=== PATIENT | male | born 1975 | race Caucasian/White ===

== ENCOUNTER 2018-02-12 13:36 | Emergency (ER) | payer SELFPAY ==
--- NOTE | 2018-02-12 14:32 | ED PDOC ---
HPI: Fever Fever Onset Was: 02/07/18 The Fever Was Measured: Tactile Symptoms Associated With Fever: Cough, Other (headache, body aches, and ear pain ) Additional Comments: 42 year old male with no significant medical history presents to the ED with a tactile fever associated headache, ear pain, cough with faith phlegm and body aches onset 5 days. He reports that the fever is worse at night, but he has not taken any medications for it. PMD: none provided Past Medical History Reviewed: Historical Data, Nursing Documentation, Vital Signs Vital Signs: Last Vital Signs Temp 98.2 F 02/12/18 13:55 Pulse 99 H 02/12/18 13:55 Resp 18 02/12/18 13:55 BP 135/83 02/12/18 13:55 Pulse Ox 99 02/12/18 14:35 - Medical History PMH: No Chronic Diseases - Surgical History Surgical History: No Surg Hx - Family History Family History: States: Unknown Family Hx - Home Medications Home Medications: Ambulatory Orders Medication Instructions Recorded Azithromycin [Zithromax] 250 mg PO DAILY #6 tab 02/12/18 Dextromethorphan Polistirex 30 mg PO BID PRN #50 ml 02/12/18 [Delsym] - Allergies Allergies/Adverse Reactions: Allergies Allergy/AdvReac Type Severity Reaction Status Date / Time No Known Allergies Allergy Verified 03/21/14 17:38 Review of Systems ROS Statement: Except As Marked, All Systems Reviewed And Found Negative Constitutional: Positive for: Fever (tactile) ENT: Positive for: Ear Pain Musculoskeletal: Positive for: Other (body aches) Neurological: Positive for: Headache Physical Exam - Reviewed Nursing Documentation Reviewed: Yes Vital Signs Reviewed: Yes - Physical Exam Appears: Positive for: Non-toxic, No Acute Distress Head Exam: Positive for: ATRAUMATIC Skin: Positive for: Normal Color, Warm Eye Exam: Positive for: Normal appearance Neck: Positive for: Normal Cardiovascular/Chest: Positive for: Regular Rate, Rhythm. Negative for: Murmur , Bradycardia, Tachycardia Respiratory: Positive for: Normal Breath Sounds. Negative for: Accessory Muscle Use, Respiratory Distress Neurologic/Psych: Positive for: Alert - ECG O2 Sat by Pulse Oximetry: 99 (RA) Pulse Ox Interpretation: Normal Medical Decision Making Medical Decision Making: Scribe Attestation: Documented by Kezia Samano, acting as a scribe for Raven Nunn PA-C. Provider Scribe Attestation: All medical record entries made by the Scribe were at my direction and personally dictated by me. I have reviewed the chart and agree that the record accurately reflects my personal performance of the history, physical exam, medical decision making, and the department course for this patient. I have also personally directed, reviewed, and agree with the discharge instructions and disposition. Disposition - Clinical Impression Clinical Impression: URI (upper respiratory infection) - Patient ED Disposition Is Patient to be Admitted: No - Disposition Disposition Time: 14:03 Condition: STABLE Prescriptions: Azithromycin [Zithromax] 250 mg PO DAILY #6 tab Dextromethorphan Polistirex [Delsym] 30 mg PO BID PRN #50 ml PRN Reason: cough Instructions: Bacterial Upper Respiratory Infection, Adult Forms: [facility] (Haitian) Print Language: NEPALI
[2018-02-12 15:35] VITALS: BP 118/78; PULSE 88; RESP 20; TEMP 98; O2SAT 100
== END 2018-02-12 15:37 | disposition home or self-care (01) ==
LOC: H.ER 13:36
DX: J06.9 Acute upper respiratory infection, unspecified (principal)